=== PATIENT | male | born 1995 ===

== ENCOUNTER 2017-09-29 15:18 | Emergency (ER) | payer OTHER ==
[2017-09-29 15:28] VITALS: RESP 18; TEMP 97.7; O2SAT 99
--- NOTE | 2017-09-29 16:15 | RAD ---
Date of service: 09/29/2017 HISTORY: upper back pain COMPARISON: No prior. TECHNIQUE: Chest PA and lateral FINDINGS: LUNGS: No active pulmonary disease. PLEURA: No significant pleural effusion identified. No pneumothorax apparent. CARDIOVASCULAR: Normal. OSSEOUS STRUCTURES: No significant abnormalities. VISUALIZED UPPER ABDOMEN: Normal. OTHER FINDINGS: None. IMPRESSION: No active disease.
--- NOTE | 2017-09-29 16:46 | C.PDOC ---
History Of Present Illness 21 year old male presents to ED with complaints of upper to lower back pain for 2 days. He reports pain is between his shoulder blades and goes down to lower back. He admits to heavy lifting at work. He reports pain is worse with movement or bending over and better laying flat. Denies any chest pain, SOB, extremity numbness or weakness. Time Seen by Provider: 09/29/17 15:30 Chief Complaint (Nursing): Back Pain History Per: Patient History/Exam Limitations: no limitations Onset/Duration Of Symptoms: Days Current Symptoms Are (Timing): Still Present Quality Of Discomfort: "Pain" Past Medical History Reviewed: Historical Data, Nursing Documentation, Vital Signs Vital Signs: Last Vital Signs Temp 97.7 F 09/29/17 15:24 Pulse 58 L 09/29/17 16:56 Resp 18 09/29/17 16:56 BP 105/61 09/29/17 16:56 Pulse Ox 99 09/29/17 17:39 - Medical History PMH: No Chronic Diseases Surgical History: No Surg Hx Family History: States: No Known Family Hx - Social History Hx Alcohol Use: Yes Hx Substance Use: No Review Of Systems Constitutional: Negative for: Fever, Chills Cardiovascular: Negative for: Chest Pain Respiratory: Negative for: Shortness of Breath Gastrointestinal: Negative for: Nausea, Vomiting, Abdominal Pain Genitourinary: Negative for: Dysuria, Hematuria Musculoskeletal: Positive for: Back Pain Skin: Negative for: Rash Neurological: Negative for: Weakness, Numbness Physical Exam - Physical Exam Appears: Non-toxic, No Acute Distress Skin: Warm, Dry, No Rash Head: Atraumatic, Normacephalic Eye(s): bilateral: Normal Inspection Oral Mucosa: Moist Neck: Supple Cardiovascular: Rhythm Regular Respiratory: Normal Breath Sounds, No Rales, No Rhonchi, No Wheezing Gastrointestinal/Abdominal: Soft, No Tenderness, No Guarding, No Rebound Back: Normal Inspection, No CVA Tenderness, Other (parathoracic muscle tenderness and subscapular tenderness, mild paralumbar tenderness) Extremity: Bilateral: Atraumatic, Normal Color And Temperature, Normal ROM Neurological/Psych: Oriented x3, Normal Speech, Normal Motor, Normal Sensation ED Course And Treatment O2 Sat by Pulse Oximetry: 99 (RA) Pulse Ox Interpretation: Normal Medical Decision Making Medical Decision Making: Impression: upper to lower back pain, likely strain Patient is tall and thin, ordered chest xray to rule out pneumothorax. Patient treated with Toradol and Flexeril. CXR shows no pneumothorax or acute disease. On reassessment, patient is resting comfortably, with mild improvement of back pain. Patient remains afebrile, with no bony tenderness, extremity numbness or weakness, or abdominal pain. No signs of zoster. Patient is ambulatory in the emergency department with no signs of discomfort. Patient was advised to follow up with physician/clinic in 1-2 days. Rx given. Disposition Counseled Patient/Family Regarding: Diagnosis, Need For Followup, Rx Given - Disposition Referrals: [facility] [Outside] [facility] [Outside] Disposition: HOME/ ROUTINE Disposition Time: 16:44 Condition: STABLE Additional Instructions: Puedes aplicar calor al gris [place] Tylenol 500 mg para cualquier dolor [place] ibuprofeno segn sea necesario para el dolor cada 6-8 horas, con alimentos para no disgustar el estmago [place] Flexeril cada 8 horas segn sea necesario para el dolor muscular y el espasmo, la precaucin puede causar somnolencia Prescriptions: Cyclobenzaprine [Cyclobenzaprine HCl] 10 mg PO TID #30 tab Ibuprofen [Motrin] 600 mg PO Q8 #30 tab Instructions: Upper Back Pain (DC) Forms: [facility] (Romansh), Work Excuse Print Language: [place] - POA Present On Arrival: None - Clinical Impression Clinical Impression: Thoracic back sprain - PA / CORRESPONDENT / Resident Statement MD/DO has reviewed & agrees with the documentation as recorded. - Scribe Statement The provider has reviewed the documentation as recorded by the Aranzaibrocio Schneider All medical record entries made by the Roney were at my direction and personally dictated by me. I have reviewed the chart and agree that the record accurately reflects my personal performance of the history, physical exam, medical decision making, and the department course for this patient. I have also personally directed, reviewed, and agree with the discharge instructions and disposition.
[2017-09-29 16:57] VITALS: BP 105/61; PULSE 58
== END 2017-09-29 16:57 | disposition home or self-care (01) ==
LOC: C.ER 15:18
DX: S23.3XXA Sprain of ligaments of thoracic spine, initial encounter (principal); X50.9XXA Other and unspecified overexertion or strenuous movements or postures, initial encounter
CPT/HCPCS: 71046; 96372; 99283; J1885